=== PATIENT | male | born 1935 | race Caucasian/White ===

== ENCOUNTER 2018-10-06 11:35 | Inpatient (IN) | payer OTHER ==
[2018-10-06] MEDS ORDERED: traZODone 50 MG TAB PO PRN (15:03)
[2018-10-06] MEDS ORDERED: ACETAMINOPHEN 650 MG SUPP PR PRN (15:03)
[2018-10-06] MEDS ORDERED: TERBINAFINE 30 GM CRTUBE TP PRN (15:03)
--- NOTE | 2018-10-06 17:23 | GHP ---
DATE OF ADMISSION: 10/06/2018 TIME OF EVALUATION: 1505. REFERRING FACILITY: [facility]. IMPAIRMENT GROUP: 1.2. DATE OF ONSET: 10/01/2018. REFERRING PHYSICIAN: Dr. Fontana. CONSULTING PHYSICIANS: Neurosurgery, Dr. Byrne, and Neurology, Drs. Doyle and Kg. 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 ETIOLOGIC DIAGNOSIS: Right body involvement (left brain). HISTORY OF PRESENT ILLNESS: This patient was admitted to [facility] with right-sided weakness and dysarthria. A head CT showed an intraparenchymal hemorrhage of the left lentiform nucleus. Head and neck CT angiogram showed no significant stenosis or large vessel occlusion. He had a transthoracic echo with bubble study that showed no intracardiac shunt. His left ventricular ejection fraction was 64%. He had mild to moderate concentric LVH and he had mildly reduced right ventricular systolic function. Carotid ultrasound showed a very small amount of plaque. CT angiogram of the head showed mild to moderate intracranial and extracranial atherosclerosis. An MRI on 10/02/2018 showed 3.2 x 1.6 x 2.8 intraparenchymal hemorrhage in the left lentiform nucleus. He had mild to moderate surrounding vasogenic edema, moderate chronic small vessel ischemic changes and age-appropriate senescent changes. He initially needed a nicardipine IV drip to maintain blood pressure less than 140 systolic. The Neurosurgery data migration consultant determined that he required no surgical intervention. His nicardipine drip was discontinued and he was resumed on his home blood pressure medications of lisinopril and hydrochlorothiazide. He was noted then to have increased blood pressure overnight. Amlodipine was begun and his blood pressure was close to goal. Subsequently, he was participating in therapies and medically stable and appropriate for inpatient rehabilitation. OTHER STUDIES AND LABS: CBC showed mild hemoconcentration with a hemoglobin of 18.4. Hematocrit was normal at 51.2. CBC was normal on on 10/01/2017. Basic metabolic profile on 10/01/2017 showed a slightly low sodium at 135, with the normal range being 136-145. His BUN was slightly elevated at 19, creatinine was high normal at 1.26. Estimated GFR was 53. Troponin was negative. Coagulation studies were normal. A lipid panel was well controlled with a total cholesterol of 126 and an LDL of 69. Repeat creatinine presumably after hydration was 1.1 with a normal GFR of 63. There was a hemoglobin A1c done, which was 5.8. PRECAUTIONS: He is a fall risk. ACTIVE COMORBIDITIES: He has the tier 2 comorbidity of dysphagia which is mild. He has a tier 3 comorbidity of right upper extremity hemiparesis. PAST MEDICAL HISTORY: 1. Hypertension. 2. Dyslipidemia. 3. Gastroesophageal reflux disorder. 4. Chronic kidney disease with a baseline creatinine of 1.2-1.3. 5. Chronic hypoxemic respiratory failure requiring 2 L of oxygen at night. 6. Restless legs syndrome for which he was taking no medications. 7. Anxiety/insomnia for which he was taking trazodone. 8. Polycythemia. PAST SURGICAL HISTORY: He has had an appendectomy. PRE-HOSPITAL MEDICATIONS: 1. Atorvastatin 20 mg p.o. daily. 2. Fluticasone 50 mcg 2 sprays each nostril daily. 3. Lisinopril/hydrochlorothiazide 20/12.5 two tablets p.o. daily. 4. Largo-3 capsule. 5. Ranitidine 300 mg p.o. daily. 6. Saw palmetto extract. 7. Terbinafine to 2 rash on foot. 8. Trazodone 50 mg p.o. daily. ADMISSION MEDICATIONS: 1. Acetaminophen 650 mg p.o. q.6 hours p.r.n. 2. Amlodipine 5 mg p.o. daily. 3. Atorvastatin 40 mg p.o. at bedtime. 4. Calcium carbonate 1000 mg before meals and at bedtime. 5. Famotidine 20 mg p.o. daily. 6. Fluticasone 2 sprays each naris daily. 7. Saw palmetto extract. 8. Hydrochlorothiazide 25 mg p.o. daily. 9. Lisinopril 40 mg p.o. daily. 10. Mirtazapine 15 mg p.o. at bedtime. 11. Largo-3 fatty acids 1000 mg p.o. daily. 12. Terbinafine 1 application daily p.r.n. to rash on right foot. 13. Trazodone 50 mg p.o. at bedtime p.r.n. ALLERGIES: Listed to minocycline, which caused a rash, and penicillins. PSYCHOSOCIAL HISTORY: He is and lives with his . She has dementia and he is a caregiver for her. 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 He is a nonsmoker. He has several drinks a week. He has a local son who is involved in his care. FAMILY HISTORY: Noncontributory. REVIEW OF SYSTEMS: He is aware of inability to move his right wrist and hand and says it feels . He reports normal sensation in the hand. He is not aware of difficulty swallowing. He is not in pain. He has no cough or dyspnea. He has no fevers or chills. He has not had weight loss. There is no chest pain or palpitations. He has a good appetite. He has no constipation, diarrhea, nausea or vomiting. He has no dysuria or urinary frequency, but he reports that he has hesitancy. Other than his rash on his right foot, he denies skin rash or skin breakdown. He denies joint pain or joint swelling. He has had anxiety especially at night for which the mirtazapine was prescribed. Otherwise, a 10-point review of systems is negative. PHYSICAL EXAMINATION: VITAL SIGNS: Not yet available in the chart. GENERAL: This is a well-nourished, well-developed, overweight appearing man, sitting in a chair, cooperative, dressed in street clothes, and in no acute distress. HEENT: Extraocular movements are intact. Pupils are equal, round, reactive to light. Mucous membranes are moist. Dentition is in good condition. He has an uncrowded airway, Mallampati class 2. NECK: Supple. HEART: There is a regular rate and rhythm with no murmurs, rubs, or gallops. There is no JVD. LUNGS: Clear to auscultation bilaterally. ABDOMEN: Soft, nontender, nondistended with normoactive bowel sounds and no hepatosplenomegaly. EXTREMITIES: There is no cyanosis, clubbing, or edema. Radial and dorsalis pedis pulses are 2+ bilaterally. NEUROLOGIC: He is alert and oriented x3. Cranial nerves 2-12 are grossly intact. He has flaccid paralysis of the right wrist, hand, and fingers. He is able to raise his arm against gravity from the shoulder. He has muscle activation of the biceps and triceps, but he clearly has antigravity strength with the right biceps. The right triceps is 3-4/5. Otherwise, his motor strength is 5/5 overall. Deep tendon reflexes are 2+ bilaterally at the biceps, patellar, and Achilles tendons. Sensation is intact to light touch including on the right hand and there is no extinction to double simultaneous stimulation. SKIN: He has a confluent erythematous quantified rash over the medial left ankle and foot. CURRENT LEVEL OF FUNCTION PER THE PREADMISSION SCREEN: He was on a dysphagia 3 diet and required minimal assist for feeding. Grooming, he required minimal assist with verbal and tactile cues, standing at the sink and he was able to stand for 8 minutes. Bathing required minimal assist. Upper body dressing was done with modified independence and lower body dressing with modified independence for pants but maximal assist for socks. Toileting required minimal assist. Bed mobility required minimal assist. Transfers were done with minimal assist and verbal and tactile cues using a front-wheeled walker. Balance required minimal assist with dynamic upright tasks. Endurance was fair. He was able to ambulate 90 feet with minimal assist and a front-wheeled walker. His gait pattern lacked heel strike and toe off. He had a narrow base of support and leaned to the right. He required maximal assist to maintain right hand web merchandiser on the front wheeled walker. Regarding communication, he was noted to have mild aphasia. On today's exam, there are no significant changes from the preadmission screen. IMPRESSION: This is an 83-year-old man who suffered a hemorrhagic stroke to the left lentiform nucleus, giving him right hand and wrist weakness. There is flaccid paralysis and right arm weakness, impaired gait, mild aphasia and mild dysphagia. He had a full evaluation in the hospital including no cardioembolic source and no significant vascular stenoses in the cerebral vasculature or the carotids. He had a very high blood pressure and required a nicardipine drip initially. Subsequently he was resumed on his home medications, but noted to have elevated blood pressures overnight and amlodipine was begun and added q. day. He had anxiety and associated insomnia. Mirtazapine was added to his prior prescription of trazodone and on one recent night the trazodone was given at about 1:30 in the morning and he was quite groggy when he arose in the morning. He was otherwise medically stabilized and appropriate for inpatient rehabilitation. His goal is to complete a rehabilitation stay and then return home with home health care. For a safe discharge he will need to achieve modified independence for eating, grooming, bed mobility, and transfers. He may require supervision for dressing and bathing. He will ambulate with the least restrictive device on level and unlevel surfaces for household distances. He may need a wheelchair for community outings. He will need to tolerate a regular diet and thin liquids. He will likely require assistance for household management, shopping, and meals and he and his family will need education regarding his impairments in compensatory strategies. He will have therapy with physical therapy, occupational therapy, and speech and language pathology for 60 minutes per day for each discipline on 5-7 days of the week. His expected duration of stay is 10-14 days. It is anticipated that he will continue to benefit from home health services after his discharge, including nursing, speech and language pathology, a nurse' s aide, social work, occupational therapy, and physical therapy. Additionally, he will likely benefit from a stroke support group. PLAN: 1. Hemorrhagic cerebrovascular accident with flaccid paralysis of the right wrist and hand and weakness of the right upper extremity as well as gait impairment. PT and OT to optimize mobility and activities of daily living. 2. Aphasia and dysphagia. Assessment and treatment per Speech and Language Pathology. 3. Hypertension. Continue amlodipine 5 mg daily, lisinopril 40 mg daily, and hydrochlorothiazide 25 mg daily. His blood pressure will be monitored. If he continues to have elevated blood pressures at night or first thing in the morning, we will consider changing the amlodipine to h.s. dosing. 4. Dyslipidemia. Atorvastatin has been increased from 20 mg to 40 mg and this will be continued. 5. Anxiety and insomnia. He may well sleep better now that he is out of the hospital and on the rehabilitation unit. Will evaluate his sleep and his alertness during the day and consider elimination or titration of either mirtazapine or trazodone. 6. Rash on the right foot of unclear etiology. Continue the terbinafine at present. He reports that the itch on the rash has remitted with the terbinafine treatment which was prescribed by his outpatient physician. 7. Gastroesophageal reflux disorder. Continue H2 navneet and continue calcium carbonate. 8. Chronic kidney disease, stage 3. He appears to be stable on his antihypertensives through his hospital stay and will not order repeat labs at present. 9. Chronic hypoxemic respiratory failure of unclear etiology. He did not appear to have diastolic or systolic dysfunction other than the right ventricle with a slightly reduced ejection fraction on echocardiogram during his hospitalization. 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 He will be monitored and will receive oxygen as needed. 10. Prediabetes with a hemoglobin A1c of 5.8. There will be a consult with the dietitian. 11. Prophylaxis. He does not have a paralyzed lower extremity and he is ambulatory. He has a recent brain hemorrhage, so on balance, the risk of bleed probably exceeds the risk of DVT. He will be mobilized as much as possible. Aspirin has been discontinued which he was taking prior to his bleed. He will have SCDs at night. 12. Followup. There are no specific specialists followups mentioned in the discharge summary. He will follow up with his primary care provider. /[id number]/MODL HIPOLITO
[2018-10-06] MEDS: ATORVASTATIN CALCIUM 40 MG TAB PO SCH (20:09)
[2018-10-06] MEDS: MIRTAZAPINE 15 MG TAB PO SCH (20:09)
[2018-10-06] MEDS: CALCIUM CARBONATE 500 MG CHEWABLE TAB PO PRN (22:45)
[2018-10-07] MEDS: OMEGA-3 FATTY ACIDS 1,000 MG CAP PO SCH (08:52)
[2018-10-07] MEDS: FAMOTIDINE 20 MG TAB PO SCH (08:54)
[2018-10-07] MEDS: amLODIPine BESYLATE 5 MG TAB PO SCH (08:54)
[2018-10-07] MEDS: HYDROCHLOROTHIAZIDE 25 MG TAB PO SCH (08:54)
[2018-10-07] MEDS: LISINOPRIL 40 MG TAB PO SCH (08:55)
[2018-10-07] MEDS ORDERED: Herbals/Supplements -Info Only PO SCH (09:00)
[2018-10-07] MEDS: FLUTICASONE NASAL 120 SPRAYS/16 GM MDI EACHNARE SCH (09:04)
--- NOTE | 2018-10-07 13:32 | SOAPPROG ---
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 * PT and OT to optimize mobility and activities of daily living. Aphasia and dysphagia. Assessment and treatment per Speech and Language Pathology. Hypertension. Continue amlodipine 5 mg daily, lisinopril 40 mg daily, and hydrochlorothiazide 25 mg daily. His blood pressure will be monitored. If he continues to have elevated blood pressures at night or first thing in the morning, consider changing the amlodipine to h.s. dosing. Dyslipidemia. Atorvastatin has been increased from 20 mg to 40 mg and this will be continued. Anxiety and insomnia. He may well sleep better now that he is out of the hospital and on the rehabilitation unit. Will evaluate his sleep and his alertness during the day and consider elimination or titration of either mirtazapine or trazodone. * Will discuss whether he needs alarms with nursing. * Trial of ropinirole 0.25 mg at HS regarding restless leg syndrome, beginning . Rash on the right foot of unclear etiology. Continue the terbinafine at present. He reports that the itch on the rash has remitted with the terbinafine treatment which was prescribed by his outpatient physician. Gastroesophageal reflux disorder. Continue H2 navneet and continue calcium carbonate. Chronic kidney disease, stage 3. He appears to be stable on his antihypertensives through his hospital stay and will not order repeat labs at present. Chronic hypoxemic respiratory failure of unclear etiology. He did not appear to have diastolic or systolic dysfunction other than the right ventricle with a slightly reduced ejection fraction on echocardiogram during his hospitalization. 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 He will be monitored and will receive oxygen as needed. Prediabetes with a hemoglobin A1c of 5.8. There will be a consult with the dietitian. Prophylaxis. He does not have a paralyzed lower extremity and he is ambulatory. He has a recent brain hemorrhage, so on balance, the risk of bleed probably exceeds the risk of DVT. He will be mobilized as much as possible. Aspirin has been discontinued which he was taking prior to his bleed. He will have SCDs at night. Followup. There are no specific specialists followups mentioned in the discharge summary. He will follow up with his primary care provider. 10/07/18 13:35 Subjective: Reports poor sleep overnight. He said that he moves around a lot at night and sometimes sits up on the edge of the bed and he kept setting off the alarm. He also thinks that his restless leg syndrome may be causing some sleep disturbance. Otherwise without complaints. Objective: Vital Signs Temp Pulse Resp BP Pulse Ox 36.6 C 83 18 122/68 H 91 L 10/06/18 20:16 10/07/18 08:00 10/06/18 20:16 10/07/18 08:00 10/07/18 08:00 10/06/18 10/07/18 10/08/18 05:59 05:59 05:59 Intake Total 360 425 Output Total 950 250 Balance -590 175 Physical Exam - Physical Exam General Appearance: WD/WN, alert, no apparent distress Respiratory: normal breath sounds, No crackles, No rhonchi, No wheezing Cardiac/Chest: regular rate, rhythm, No edema, No diastolic murmur, No systolic murmur Skin: normal color, warm/dry Neuro/Psych: alert, normal mood/affect, oriented x 3, abnormal gait (Ataxic gait on right lower extremity. Ambulating with contact guard assist per PT using trekking pole in the left hand. Has loss of balance x1.), motor weakness (Right upper extremity) ICD10 Worksheet Patient Problems: Problems Problem Status Onset CVA (cerebrovascular accident due to intracerebral hemorrhage) Acute
--- NOTE | 2018-10-07 13:33 | PDOREHIP ---
Admission [facility] - Admission - 3 Day Assessment Period Admission Date/Day 1: 10/06/18 Day 2: 10/07/18 Day 3: 10/08/18 - Active Diagnoses Comorbidities and Co-existing Conditions at Admission: 89760. None of the Above - Skin Conditions Unhealed Pressure Ulcer (1 or more/Stage 1 or >)-Admission: 0. No # Stage 1 Pressure Ulcers-Admission: 0 # Stage 2 Pressure Ulcers-Admission: 0 # Stage 3 Pressure Ulcers-Admission: 0 # Stage 4 Pressure Ulcers-Admission: 0 # Unstageable Pressure Ulcers (Non-remove Dress)-Admission: 0 # Unstageable Pressure Ulcers (Slough/Eschar)-Admission: 0 # Unstageable Pressure Ulcers (Deep Tissue Injury)-Admission: 0
[2018-10-07] MEDS: ATORVASTATIN CALCIUM 40 MG TAB PO SCH (20:58)
[2018-10-07] MEDS: MIRTAZAPINE 15 MG TAB PO SCH (20:58)
[2018-10-08] MEDS: LISINOPRIL 40 MG TAB PO SCH (08:16)
[2018-10-08] MEDS: OMEGA-3 FATTY ACIDS 1,000 MG CAP PO SCH (08:16)
[2018-10-08] MEDS: amLODIPine BESYLATE 5 MG TAB PO SCH (08:16)
[2018-10-08] MEDS: FLUTICASONE NASAL 120 SPRAYS/16 GM MDI EACHNARE SCH (08:16)
[2018-10-08] MEDS: HYDROCHLOROTHIAZIDE 25 MG TAB PO SCH (08:16)
[2018-10-08] MEDS: FAMOTIDINE 20 MG TAB PO SCH (08:16)
--- NOTE | 2018-10-08 11:22 | SOAPPROG ---
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 * PT and OT to optimize mobility and activities of daily living. Aphasia and dysphagia. Assessment and treatment per Speech and Language Pathology. Hypertension. Continue amlodipine 5 mg daily, lisinopril 40 mg daily, and hydrochlorothiazide 25 mg daily. His blood pressure will be monitored. If he continues to have elevated blood pressures at night or first thing in the morning, consider changing the amlodipine to h.s. dosing. * He reports he was on potassium 10 mEq 4 times a day previously and wonders if he needs it now. Will check BMP and magnesium in the morning. Dyslipidemia. Atorvastatin has been increased from 20 mg to 40 mg and this will be continued. Anxiety and insomnia. He may well sleep better now that he is out of the hospital and on the rehabilitation unit. Will evaluate his sleep and his alertness during the day and consider elimination or titration of either mirtazapine or trazodone. * Will discuss whether he needs alarms with nursing. * Trial of ropinirole 0.25 mg at regarding restless leg syndrome, beginning . He may have had some improvement. Consider increasing the dose on . Encouraged to use call light at night if he wants to get up, and assured him that he will not be bothering anyone by doing it. Rash on the right foot of unclear etiology. Continue the terbinafine at present. He reports that the itch on the rash has remitted with the terbinafine treatment which was prescribed by his outpatient physician. Gastroesophageal reflux disorder. Continue H2 navneet and continue calcium carbonate. Chronic kidney disease, stage 3. He appears to be stable on his antihypertensives through his hospital stay and will not order repeat labs at present. Chronic hypoxemic respiratory failure of unclear etiology. He did not appear to have diastolic or systolic dysfunction other than the right ventricle with a slightly reduced ejection fraction on echocardiogram during his hospitalization. 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 He will be monitored and will receive oxygen as needed. Prediabetes with a hemoglobin A1c of 5.8. There will be a consult with the dietitian. Prophylaxis. He does not have a paralyzed lower extremity and he is ambulatory. He has a recent brain hemorrhage, so on balance, the risk of bleed probably exceeds the risk of DVT. He will be mobilized as much as possible. Aspirin has been discontinued which he was taking prior to his bleed. He will have SCDs at night. Followup. There are no specific specialists followups mentioned in the discharge summary. He will follow up with his primary care provider. 10/08/18 11:21 Subjective: Slept better last night but still concerned that if he wants to get up at night he will set off alarm. No pain. No cough or dyspnea. Notes improved use of right hand. Objective: Vital Signs Temp Pulse Resp BP Pulse Ox 36.4 C 78 16 138/87 H 93 10/08/18 06:08 10/08/18 08:17 10/08/18 06:08 10/08/18 08:17 10/08/18 06:08 10/07/18 10/08/18 10/09/18 05:59 05:59 05:59 Intake Total 360 1085 Output Total 950 250 Balance -590 835 Physical Exam - Physical Exam General Appearance: WD/WN, alert, no apparent distress Respiratory: normal breath sounds, No crackles, No rhonchi, No wheezing Cardiac/Chest: regular rate, rhythm, No edema, No JVD, No diastolic murmur, No systolic murmur Skin: normal color, warm/dry Neuro/Psych: alert, normal mood/affect, oriented x 3, motor weakness (Has return of movement to right wrist and fingers.) ICD10 Worksheet Patient Problems: Problems Problem Status Onset CVA (cerebrovascular accident due to intracerebral hemorrhage) Acute
[2018-10-08] MEDS: ATORVASTATIN CALCIUM 40 MG TAB PO SCH (20:31)
[2018-10-08] MEDS: MIRTAZAPINE 15 MG TAB PO SCH (20:31)
[2018-10-09] MEDS: LISINOPRIL 40 MG TAB PO SCH (08:54)
[2018-10-09] MEDS: amLODIPine BESYLATE 5 MG TAB PO SCH (08:55)
[2018-10-09] MEDS: HYDROCHLOROTHIAZIDE 25 MG TAB PO SCH (08:55)
[2018-10-09] MEDS: FLUTICASONE NASAL 120 SPRAYS/16 GM MDI EACHNARE SCH (08:55)
[2018-10-09] MEDS: OMEGA-3 FATTY ACIDS 1,000 MG CAP PO SCH (08:55)
[2018-10-09] MEDS: FAMOTIDINE 20 MG TAB PO SCH (08:55)
[2018-10-09] MEDS: POTASSIUM CL 10 MEQ TAB PO SCH (12:11)
--- NOTE | 2018-10-09 13:12 | SOAPPROG ---
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 * Initial functional independence measure is 87 on 10/09/2017. He is independent with bed mobility. He ambulated greater than 300 ft with standby assist and a trach pole. Upper body dressing required supervision and lower body required minimal assist. Grooming hygiene were done standing with standby assist. Toileting and toilet transfer required standby assist. * Continue PT and OT to optimize mobility and activities of daily living. Cognitive impairment. Scored 18/30 on the [facility] cognitive Assessment Test. Has decreased word retrieval, naming, new learning and memory, executive function. 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 Hope for improvement if his sleep improves. Hypertension. Continue amlodipine 5 mg daily, lisinopril 40 mg daily, and hydrochlorothiazide 25 mg daily. His blood pressure will be monitored. If he continues to have elevated blood pressures at night or first thing in the morning, consider changing the amlodipine to h.s. dosing. * He reports he was on potassium 10 mEq 4 times a day previously and wonders if he needs it now. BMP 10/09/2018 with dehydration and a low-normal potassium. Will initiate potassium 10 mEq p. O. Q.day. Encouraged hydration. Dyslipidemia. Atorvastatin has been increased from 20 mg to 40 mg and this will be continued. Anxiety and insomnia. He may well sleep better now that he is out of the hospital and on the rehabilitation unit. Will evaluate his sleep and his alertness during the day and consider elimination or titration of either mirtazapine or trazodone. * Will discuss whether he needs alarms with nursing. * Trial of ropinirole 0.25 mg at regarding restless leg syndrome, beginning . He may have had some improvement. Increase dose on 10/09/2018 to 0.5 mg. Encouraged to use call light at night if he wants to get up, and assured him that he will not be bothering anyone by doing it. * Not using trazodone so will discontinue 10/09/2018. Rash on the right foot of unclear etiology. Continue the terbinafine at present. He reports that the itch on the rash has remitted with the terbinafine treatment which was prescribed by his outpatient physician. Gastroesophageal reflux disorder. Continue H2 navneet and continue calcium carbonate. Chronic kidney disease, stage 3. Stable on BMP 10/09/2018. Chronic hypoxemic respiratory failure of unclear etiology. He did not appear to have diastolic or systolic dysfunction other than the right ventricle with a slightly reduced ejection fraction on echocardiogram during his hospitalization. 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 He will be monitored and will receive oxygen as needed. Prediabetes with a hemoglobin A1c of 5.8. There will be a consult with the dietitian. Dysphagia. Advanced to regular texture diet and thin liquids. Prophylaxis. He does not have a paralyzed lower extremity and he is ambulatory. He has a recent brain hemorrhage, so on balance, the risk of bleed probably exceeds the risk of DVT. He will be mobilized as much as possible. Aspirin has been discontinued which he was taking prior to his bleed. He will have SCDs at night. DISPOSITION: Attended staffing, 15 min. Discussed with case management, dietitian, nursing, PT, OT, SUPERVISOR UNLOADING. Lives with his who has mild dementia though she is able to complete her physical cares. He reports he assists her with medication management. There are 2 steps to enter. Given his newly diagnosed cognitive impairment, they might be best served by moving to an assisted living facility. Case Management will discuss further. Discharge date set for 10/15/2018. Followup. There are no specific specialists followups mentioned in the discharge summary. He will follow up with his primary care provider. 10/09/18 13:06 Subjective: Does not think he slept well last night but reports that he is typically up frequently at night and at home often he will get on his computer and plate computer games for while until he falls asleep again. He is not in pain. No cough or dyspnea. He thinks the restless legs symptoms are about the same and may have interfered with sleep last night. Objective: Vital Signs Temp Pulse Resp BP Pulse Ox 36.4 C 87 14 117/63 93 10/09/18 08:00 10/09/18 08:00 10/09/18 08:00 10/09/18 08:55 10/09/18 08:00 Laboratory Results 10/09/18 06:45 10/08/18 10/09/18 10/10/18 05:59 05:59 05:59 Intake Total 1085 300 375 Output Total 250 Balance 835 300 375 Physical Exam - Physical Exam General Appearance: WD/WN, alert, no apparent distress Respiratory: No respiratory distress, No accessory muscle use Skin: normal color, warm/dry Neuro/Psych: alert, normal mood/affect, oriented x 3, motor weakness (Right upper extremity), other (Repetitive involuntary movements of legs.) ICD10 Worksheet Patient Problems: Problems Problem Status Onset CVA (cerebrovascular accident due to intracerebral hemorrhage) Acute
[2018-10-09] MEDS: MIRTAZAPINE 15 MG TAB PO SCH (20:59)
[2018-10-09] MEDS: ATORVASTATIN CALCIUM 40 MG TAB PO SCH (20:59)
[2018-10-09] MEDS: CALCIUM CARBONATE 500 MG CHEWABLE TAB PO PRN (22:06)
[2018-10-10] MEDS: OMEGA-3 FATTY ACIDS 1,000 MG CAP PO SCH (08:14)
[2018-10-10] MEDS: amLODIPine BESYLATE 5 MG TAB PO SCH (08:14)
[2018-10-10] MEDS: FAMOTIDINE 20 MG TAB PO SCH (08:14)
[2018-10-10] MEDS: HYDROCHLOROTHIAZIDE 25 MG TAB PO SCH (08:14)
[2018-10-10] MEDS: POTASSIUM CL 10 MEQ TAB PO SCH (08:14)
[2018-10-10] MEDS: LISINOPRIL 40 MG TAB PO SCH (08:14)
[2018-10-10] MEDS: FLUTICASONE NASAL 120 SPRAYS/16 GM MDI EACHNARE SCH (09:03)
[2018-10-10] MEDS ORDERED: amLODIPine BESYLATE 5 MG TAB PO SCH (11:39)
--- NOTE | 2018-10-10 11:39 | SOAPPROG ---
SOAP Progress Note Assessment/Plan: Assessment: Hemorrhagic cerebrovascular accident with INITIAL flaccid paralysis of the right wrist and hand and weakness of the right upper extremity as well as gait impairment. HE IS MAKING IMPROVEMENTS IN BOTH RIGHT UPPER AND RIGHT LOWER EXTREMITY MOTOR RETURN. AND CURRENTLY RIGHT UPPER EXTREMITY WEAKNESS IS MORE PRONOUNCED THAN RIGHT LOWER EXTREMITY, PARTICULARLY INVOLVING WRIST AND FINGER EXTENSORS. * Initial functional independence measure is 87 on 10/09/2017. He is independent with bed mobility. He ambulated greater than 300 ft with standby assist and a trach pole. Upper body dressing required supervision and lower body required minimal assist. Grooming hygiene were done standing with standby assist. Toileting and toilet transfer required standby assist. * Continue PT and OT to optimize mobility and activities of daily living. Cognitive impairment. Scored 18/30 on the [place] cognitive Assessment Test. Has decreased word retrieval, naming, new learning and memory, executive function. 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 Hope for improvement if his sleep improves. Hypertension. Continue amlodipine 5 mg daily, lisinopril 40 mg daily, and hydrochlorothiazide 25 mg daily. His blood pressure will be monitored. If he continues to have elevated blood pressures at night or first thing in the morning, consider changing the amlodipine to h.s. dosing. BLOOD PRESSURE FROM MORNING WAS 134/91. THEREFORE WILL CHANGE AMLODIPINE TO HS DOSING. POTASSIUM LEVEL FROM 10/09 WAS 3.6. * He reports he was on potassium 10 mEq 4 times a day previously and wonders if he needs it now. BMP 10/09/2018 with dehydration and a low-normal potassium. Will initiate potassium 10 mEq p. O. Q.day. Encouraged hydration. Dyslipidemia. Atorvastatin has been increased from 20 mg to 40 mg and this will be continued. Anxiety and insomnia. He may well sleep better now that he is out of the hospital and on the rehabilitation unit. Will evaluate his sleep and his alertness during the day and consider elimination or titration of either mirtazapine or trazodone. * Will discuss whether he needs alarms with nursing. HE REPORTS THAT HE IS NOT SLEEPING WELL DUE TO THE NIGHTTIME ALARMS. IF HAS TEAM MEETING ON FRIDAY THEN WILL DISCUSS WITH STAFF ABOUT DISCONTINUING BED ALARMS * Trial of ropinirole 0.25 mg at HS regarding restless leg syndrome, beginning . He may have had some improvement. Increase dose on 10/09/2018 to 0.5 mg. HE DOES NOT COMPLAIN OF LEG PAIN OR RESTLESS LEG TYPE SYMPTOMS ON TODAY'S ROUNDS. Encouraged to use call light at night if he wants to get up, and assured him that he will not be bothering anyone by doing it. * Not using trazodone so will discontinue 10/09/2018. Rash on the right foot of unclear etiology. Continue the terbinafine at present. He reports that the itch on the rash has remitted with the terbinafine treatment which was prescribed by his outpatient physician. Gastroesophageal reflux disorder. Continue H2 navneet and continue calcium carbonate. Chronic kidney disease, stage 3. Stable on BMP 10/09/2018. Chronic hypoxemic respiratory failure of unclear etiology. He did not appear to have diastolic or systolic dysfunction other than the right ventricle with a slightly reduced ejection fraction on echocardiogram during his hospitalization. 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 He will be monitored and will receive oxygen as needed. Prediabetes with a hemoglobin A1c of 5.8. There will be a consult with the dietitian. Dysphagia. Advanced to regular texture diet and thin liquids. Prophylaxis. He does not have a paralyzed lower extremity and he is ambulatory. He has a recent brain hemorrhage, so on balance, the risk of bleed probably exceeds the risk of DVT. He will be mobilized as much as possible. Aspirin has been discontinued which he was taking prior to his bleed. He will have SCDs at night. DISPOSITION: Attended staffing, 15 min. Discussed with case management, dietitian, nursing, PT, OT, SKATING RINK ICE MAKER. Lives with his who has mild dementia though she is able to complete her physical cares. He reports he assists her with medication management. There are 2 steps to enter. Given his newly diagnosed cognitive impairment, they might be best served by moving to an assisted living facility. Case Management will discuss further. Discharge date set for 10/15/2018. Followup. There are no specific specialists followups mentioned in the discharge summary. He will follow up with his primary care provider. Plan: 10/10/18 11:33 Subjective: NO COMPLAINTS THIS MORNING. NO PROBLEMS REPORTED BY NURSING STAFF. DENIES NUMBNESS TINGLING OR PARESTHESIAS IN RIGHT UPPER EXTREMITY. REPORTS CONTINUED RETURN OF MOTOR FUNCTION IN RIGHT UPPER AND RIGHT LOWER EXTREMITY ALTHOUGH HE REPORTS HIS RIGHT ARM IS WEAKER THAN HIS LEG. Objective: Vital Signs Temp Pulse Resp BP Pulse Ox 36.3 C 85 18 134/91 H 94 10/10/18 09:03 10/10/18 08:10 10/10/18 08:10 10/10/18 08:14 10/10/18 08:10 Laboratory Results 10/09/18 06:45 10/09/18 10/10/18 10/11/18 05:59 05:59 05:59 Intake Total 300 1065 Balance 300 1065 Physical Exam - Physical Exam General Appearance: WD/WN, alert, no apparent distress Respiratory: lungs clear, normal breath sounds Cardiac/Chest: No edema Abdomen: normal bowel sounds, non-tender, soft Extremities: No swelling, No Wendy's sign Neuro/Psych: motor weakness (MILD RIGHT HEMIPARESIS WITH RIGHT UPPER EXTREMITY WEAKNESS MORE PRONOUNCED THAN RIGHT LOWER EXTREMITY, PARTICULARLY THE WRIST AND FINGER EXTENSORS.) ICD10 Worksheet Patient Problems: Problems Problem Status Onset CVA (cerebrovascular accident due to intracerebral hemorrhage) Acute
[2018-10-10] MEDS: MIRTAZAPINE 15 MG TAB PO SCH (20:16)
[2018-10-10] MEDS: ATORVASTATIN CALCIUM 40 MG TAB PO SCH (20:16)
[2018-10-10] MEDS: CALCIUM CARBONATE 500 MG CHEWABLE TAB PO PRN (21:12)
[2018-10-11] MEDS: LISINOPRIL 40 MG TAB PO SCH (08:28)
[2018-10-11] MEDS: FAMOTIDINE 20 MG TAB PO SCH (08:28)
[2018-10-11] MEDS: HYDROCHLOROTHIAZIDE 25 MG TAB PO SCH (08:28)
[2018-10-11] MEDS: POTASSIUM CL 10 MEQ TAB PO SCH (08:29)
[2018-10-11] MEDS: OMEGA-3 FATTY ACIDS 1,000 MG CAP PO SCH (08:29)
--- NOTE | 2018-10-11 09:54 | SOAPPROG ---
SOAP Progress Note Assessment/Plan: Assessment: Hemorrhagic cerebrovascular accident with INITIAL flaccid paralysis of the right wrist and hand and weakness of the right upper extremity as well as gait impairment. HE IS MAKING IMPROVEMENTS IN BOTH RIGHT UPPER AND RIGHT LOWER EXTREMITY MOTOR RETURN. AND CURRENTLY RIGHT UPPER EXTREMITY WEAKNESS IS MORE PRONOUNCED THAN RIGHT LOWER EXTREMITY, PARTICULARLY INVOLVING WRIST AND FINGER EXTENSORS. THIS DIRECTED PATIENT TO PERFORM REPETITIVE WRIST AND FINGER EXTENSION WHILE SUPPORTING FOREARM ON TABLE OR LAP TRAY. * Initial functional independence measure is 87 on 10/09/2017. He is independent with bed mobility. He ambulated greater than 300 ft with standby assist and a trach pole. Upper body dressing required supervision and lower body required minimal assist. Grooming hygiene were done standing with standby assist. Toileting and toilet transfer required standby assist. * Continue PT and OT to optimize mobility and activities of daily living. Cognitive impairment. Scored 18/30 on the [place] cognitive Assessment Test. Has decreased word retrieval, naming, new learning and memory, executive function. * Continue PLEAT TAPER. Hope for improvement if his sleep improves. Hypertension. Continue amlodipine 5 mg daily, lisinopril 40 mg daily, and hydrochlorothiazide 25 mg daily. His blood pressure will be monitored. If he continues to have elevated blood pressures at night or first thing in the morning, consider changing the amlodipine to h.s. dosing. BLOOD PRESSURE 10/11 125/62. PATIENT SEEMS TO HAVE RESPONDED TO CHANGING THE AMLODIPINE TO HS DOSING. * He reports he was on potassium 10 mEq 4 times a day previously and wonders if he needs it now. BMP 10/09/2018 with dehydration and a low-normal potassium. Will initiate potassium 10 mEq p. O. Q.day. Encouraged hydration. Dyslipidemia. Atorvastatin has been increased from 20 mg to 40 mg and this will be continued. Anxiety and insomnia. He may well sleep better now that he is out of the hospital and on the rehabilitation unit. Will evaluate his sleep and his alertness during the day and consider elimination or titration of either mirtazapine or trazodone. * Will discuss whether he needs alarms with nursing. HE REPORTS THAT HE IS NOT SLEEPING WELL DUE TO THE NIGHTTIME ALARMS. IF HAS TEAM MEETING ON FRIDAY THEN WILL DISCUSS WITH STAFF ABOUT DISCONTINUING BED ALARMS * Trial of ropinirole 0.25 mg at HS regarding restless leg syndrome, beginning . He may have had some improvement. Increase dose on 10/09/2018 to 0.5 mg. HE DOES NOT COMPLAIN OF LEG PAIN OR RESTLESS LEG TYPE SYMPTOMS ON TODAY'S ROUNDS. HE REPORTS THAT HIS LEGS HAVE BEEN JITTERY FAR BACK HE CAN REMEMBER. Encouraged to use call light at night if he wants to get up, and assured him that he will not be bothering anyone by doing it. * BEGIN MELATONIN 3 MG AT NIGHT. DISCUSSED WITH PHARMACY TO ASCERTAIN THAT THERE ARE NO ADVERSE REACTIONS WITH HIS OTHER MEDICATIONS. Not using trazodone so will discontinue 10/09/2018. Rash on the right foot of unclear etiology. Continue the terbinafine at present. He reports that the itch on the rash has remitted with the terbinafine treatment which was prescribed by his outpatient physician. Gastroesophageal reflux disorder. Continue H2 navneet and continue calcium carbonate. Chronic kidney disease, stage 3. Stable on BMP 10/09/2018. Chronic hypoxemic respiratory failure of unclear etiology. He did not appear to have diastolic or systolic dysfunction other than the right ventricle with a slightly reduced ejection fraction on echocardiogram during his hospitalization. 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 He will be monitored and will receive oxygen as needed. Prediabetes with a hemoglobin A1c of 5.8. There will be a consult with the dietitian. Dysphagia. Advanced to regular texture diet and thin liquids. Prophylaxis. He does not have a paralyzed lower extremity and he is ambulatory. He has a recent brain hemorrhage, so on balance, the risk of bleed probably exceeds the risk of DVT. He will be mobilized as much as possible. Aspirin has been discontinued which he was taking prior to his bleed. He will have SCDs at night. DISPOSITION: Given his newly diagnosed cognitive impairment, they might be best served by moving to an assisted living facility. Case Management will discuss further. Discharge date set for 10/15/2018. Followup. There are no specific specialists followups mentioned in the discharge summary. He will follow up with his primary care provider. Plan: 10/10/18 11:33 10/11/18 09:48 Subjective: PATIENT REPORTS THAT HE IS NOT SLEEPING WELL. OTHERWISE HE HAS NO COMPLAINTS. Objective: Vital Signs Temp Pulse Resp BP Pulse Ox 36.6 C 75 16 125/62 H 92 10/11/18 08:00 10/11/18 08:00 10/11/18 08:00 10/11/18 08:00 10/11/18 08:00 Laboratory Results 10/09/18 06:45 10/10/18 10/11/18 10/12/18 05:59 05:59 05:59 Intake Total 1065 1280 Balance 1065 1280 Physical Exam - Physical Exam General Appearance: WD/WN, alert Respiratory: lungs clear, normal breath sounds Cardiac/Chest: regular rate, rhythm Abdomen: non-tender, soft, other (NO SUPRAPUBIC TENDERNESS) Neuro/Psych: alert, normal mood/affect, motor weakness (RIGHT UPPER EXTREMITY WEAKNESS GREATER THAN RIGHT LOWER EXTREMITY WEAKNESS.) ICD10 Worksheet Patient Problems: Problems Problem Status Onset CVA (cerebrovascular accident due to intracerebral hemorrhage) Acute
[2018-10-11] MEDS: FLUTICASONE NASAL 120 SPRAYS/16 GM MDI EACHNARE SCH (11:10)
[2018-10-11] MEDS: ATORVASTATIN CALCIUM 40 MG TAB PO SCH (20:07)
[2018-10-11] MEDS: MELATONIN 3 MG TAB PO SCH (20:07)
[2018-10-11] MEDS: MIRTAZAPINE 15 MG TAB PO SCH (20:08)
[2018-10-11] MEDS: amLODIPine BESYLATE 5 MG TAB PO SCH (20:09)
[2018-10-11] MEDS: CALCIUM CARBONATE 500 MG CHEWABLE TAB PO PRN (20:09)
[2018-10-12] MEDS: OMEGA-3 FATTY ACIDS 1,000 MG CAP PO SCH (08:25)
[2018-10-12] MEDS: FAMOTIDINE 20 MG TAB PO SCH (08:26)
[2018-10-12] MEDS: LISINOPRIL 40 MG TAB PO SCH (08:26)
[2018-10-12] MEDS: POTASSIUM CL 10 MEQ TAB PO SCH (08:26)
[2018-10-12] MEDS: HYDROCHLOROTHIAZIDE 25 MG TAB PO SCH (08:27)
[2018-10-12] MEDS: FLUTICASONE NASAL 120 SPRAYS/16 GM MDI EACHNARE SCH (08:27)
--- NOTE | 2018-10-12 09:36 | SOAPPROG ---
SOAP Progress Note Assessment/Plan: Assessment: Hemorrhagic cerebrovascular accident with INITIAL flaccid paralysis of the right wrist and hand and weakness of the right upper extremity as well as gait impairment. HE IS MAKING IMPROVEMENTS IN BOTH RIGHT UPPER AND RIGHT LOWER EXTREMITY MOTOR RETURN. AND CURRENTLY RIGHT UPPER EXTREMITY WEAKNESS IS MORE PRONOUNCED THAN RIGHT LOWER EXTREMITY, PARTICULARLY INVOLVING WRIST AND FINGER EXTENSORS. HE WILL CONTINUE TO PERFORM REPETITIVE WRIST AND FINGER EXTENSION WHILE SUPPORTING FOREARM ON TABLE OR LAP TRAY. * Initial functional independence measure is 87 on 10/09/2017. He is independent with bed mobility. He ambulated greater than 300 ft with standby assist and a trach pole. Upper body dressing required supervision and lower body required minimal assist. Grooming hygiene were done standing with standby assist. Toileting and toilet transfer required standby assist. * Continue PT and OT to optimize mobility and activities of daily living. Cognitive impairment. Scored 18/30 on the [employer] cognitive Assessment Test. Has decreased word retrieval, naming, new learning and memory, executive function. * Continue ICING MAKER. Hope for improvement if his sleep improves. Hypertension. BLOOD PRESSURE ON 10/12 123/81. Continue amlodipine 5 mg daily, lisinopril 40 mg daily, and hydrochlorothiazide 25 mg daily. PATIENT SEEMS TO HAVE RESPONDED TO CHANGING THE AMLODIPINE TO HS DOSING. * He reports he was on potassium 10 mEq 4 times a day previously and wonders if he needs it now. BMP 10/09/2018 with dehydration and a low-normal potassium. Will initiate potassium 10 mEq p. O. Q.day. Encouraged hydration. Dyslipidemia. Atorvastatin has been increased from 20 mg to 40 mg and this will be continued. Anxiety and insomnia. He may well sleep better now that he is out of the hospital and on the rehabilitation unit. Will evaluate his sleep and his alertness during the day and consider elimination or titration of either mirtazapine or trazodone. * BED ALARMS HAVE BEEN DISCONTINUED. * BEGIN MELATONIN 3 MG AT NIGHT. DISCUSSED WITH PHARMACY TO ASCERTAIN THAT THERE ARE NO ADVERSE REACTIONS WITH HIS OTHER MEDICATIONS. Not using trazodone so will discontinue 10/09/2018. RESTLESS LEG SYNDROME-PATIENT AGAIN EXPRESSES THAT HE DOES NOT WANT MEDICATIONS FOR RESTLESS LEG SYNDROME. Rash on the right foot of unclear etiology. Continue the terbinafine at present. He reports that the itch on the rash has remitted with the terbinafine treatment which was prescribed by his outpatient physician. Gastroesophageal reflux disorder. Continue H2 navneet and continue calcium carbonate. Chronic kidney disease, stage 3. Stable on BMP 10/09/2018. Chronic hypoxemic respiratory failure of unclear etiology. He did not appear to have diastolic or systolic dysfunction other than the right ventricle with a slightly reduced ejection fraction on echocardiogram during his hospitalization. 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 He will be monitored and will receive oxygen as needed. Prediabetes with a hemoglobin A1c of 5.8. There will be a consult with the dietitian. Dysphagia. Advanced to regular texture diet and thin liquids. Prophylaxis. He does not have a paralyzed lower extremity and he is ambulatory. He has a recent brain hemorrhage, so on balance, the risk of bleed probably exceeds the risk of DVT. He will be mobilized as much as possible. Aspirin has been discontinued which he was taking prior to his bleed. He will have SCDs at night. DISPOSITION: Given his newly diagnosed cognitive impairment, they might be best served by moving to an assisted living facility. Case Management will discuss further. Discharge date set for 10/15/2018. Followup. There are no specific specialists followups mentioned in the discharge summary. He will follow up with his primary care provider. Plan: 10/10/18 11:33 10/11/18 09:48 10/12/18 09:33 Subjective: HE DOES NOT HAVE ANY COMPLAINTS THIS MORNING. HE INDICATES THAT HE WOULD LIKE TO BE DISCHARGED ON 10/14 INSTEAD OF 09/23. HE REPORTS HIS THERAPY SESSIONS ARE GOING WELL. HE SLEPT BETTER LAST NIGHT AFTER HAVING HIS 1ST DOSE OF MELATONIN. HE VERBALIZES THAT HE DOES NOT WANT MEDICATIONS FOR RESTLESS LEG SYNDROME. Objective: Vital Signs Temp Pulse Resp BP Pulse Ox 36.3 C 79 16 123/81 H 94 10/12/18 08:00 10/12/18 08:00 10/12/18 08:00 10/12/18 08:00 10/12/18 08:00 Laboratory Results 10/09/18 06:45 10/11/18 10/12/18 10/13/18 05:59 05:59 05:59 Intake Total 1280 788 960 Balance 1280 788 960 Physical Exam - Physical Exam General Appearance: WD/WN, alert, no apparent distress Respiratory: lungs clear, normal breath sounds Abdomen: normal bowel sounds, non-tender, soft Skin: normal color, warm/dry Extremities: No swelling, No Wendy's sign Neuro/Psych: alert, normal mood/affect, oriented x 3, motor weakness (HE HAS AT LEAST 4/5 STRENGTH OF THE ANTERIOR AND MIDDLE DELTOID AND IS ABLE TO RAISE RIGHT ARM ABOVE SHOULDER LEVEL WITHOUT MUCH DIFFICULTY. RIGHT WRIST EXTENSOR STRENGTH 3-/5 RIGHT FINGER EXTENSORS 2+ 3-/5) ICD10 Worksheet Patient Problems: Problems Problem Status Onset CVA (cerebrovascular accident due to intracerebral hemorrhage) Acute
[2018-10-12] MEDS: MIRTAZAPINE 15 MG TAB PO SCH (19:54)
[2018-10-12] MEDS: amLODIPine BESYLATE 5 MG TAB PO SCH (19:54)
[2018-10-12] MEDS: MELATONIN 3 MG TAB PO SCH (19:54)
[2018-10-12] MEDS: ATORVASTATIN CALCIUM 40 MG TAB PO SCH (19:54)
[2018-10-13] MEDS: OMEGA-3 FATTY ACIDS 1,000 MG CAP PO SCH (07:16)
[2018-10-13] MEDS: HYDROCHLOROTHIAZIDE 25 MG TAB PO SCH (07:16)
[2018-10-13] MEDS: POTASSIUM CL 10 MEQ TAB PO SCH (07:17)
[2018-10-13] MEDS: LISINOPRIL 40 MG TAB PO SCH (07:17)
[2018-10-13] MEDS: FAMOTIDINE 20 MG TAB PO SCH (07:17)
[2018-10-13] MEDS: FLUTICASONE NASAL 120 SPRAYS/16 GM MDI EACHNARE SCH (12:49)
--- NOTE | 2018-10-13 14:59 | SOAPPROG ---
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 Looking forward to discharging home and although he would prefer to leave tomorrow, team feels that the safe discharge is on given his mobility and safety level. A total of 25 min was spent on the floor in the care of the patient, the majority of which was spent in counseling and coordination of care regarding discharge planning and rehabilitation progress. Left lentiform nucleus hemorrhagic stroke with right-sided hemiparesis: * Continue PT, OT, speech for impairments in mobility, self-care, cognition. * Continue speech therapy for dysphagia related to stroke * Secondary prevention of stroke including treatment of dyslipidemia with atorvastatin, controlling hypertension with amlodipine, lisinopril, hydrochlorothiazide. Monitor * Aspirin held * Pre diabetes with hemoglobin A1c of 5.8 with consult the dietitian * Patient will be discharging home with family assistance Anxiety and insomnia: Trazodone tried and stopped as it was not felt to be effective * Melatonin 3 mg p.o. At bedtime History of restless leg syndrome: Previously tried ropinirole during this hospitalization, felt was ineffective * Discontinued ropinirole 10/13 after he had not been taking it for 2 days prior Rash of the right foot: Unclear etiology, thought to be related to fungal infection * Continued terbinafine prescribed by PCP GERD: * Continue H2 navneet and calcium carbonate Chronic kidney disease, stage III: BMP stable on 10/09/2018 * Monitor, clinically monitor fluid status Chronic hypoxemic respiratory failure of unclear etiology: * Monitor, supplemental oxygen as needed Prophylaxis: Chemoprophylaxis was deferred given recent intracranial hemorrhage as well as relatively high mobility level. Follow-up with PCP, he would need driving evaluation before returning to driving. 10/13/18 14:51 10/13/18 14:59 10/13/18 15:00 Subjective: Chief complaint: Discharge planning No acute events overnight. Patient denies any new shortness of breath or chest pain, no new numbness, tingling, or weakness. He is looking forward to going home, would like to discharge home tomorrow if possible but recognizes that safety may limit him from going home at that time. Otherwise he feels like therapy is going well, he feels he is making progress. No barriers as participation. He reinforce that he is not interested in continuing ropinirole for his restless legs syndrome as he felt it was not effective. Objective: Vital Signs Temp Pulse Resp BP Pulse Ox 36.6 C 65 16 110/73 96 10/13/18 06:43 10/13/18 06:43 10/13/18 06:43 10/13/18 07:17 10/13/18 06:43 Laboratory Results 10/09/18 06:45 10/12/18 10/13/18 10/14/18 05:59 05:59 05:59 Intake Total 788 1860 Balance 788 1860 Physical Exam - Physical Exam General Appearance: WD/WN, alert, no apparent distress EENT: No scleral icterus (R), No scleral icterus (L) Respiratory: No respiratory distress, No accessory muscle use Cardiac/Chest: normal peripheral pulses, regular rate, rhythm, No edema Skin: normal color, warm/dry, No cyanosis, No diaphoresis Extremities: No pedal edema, No swelling Neuro/Psych: alert, normal mood/affect, motor weakness (Right weakness) ICD10 Worksheet Patient Problems: Problems Problem Status Onset CVA (cerebrovascular accident due to intracerebral hemorrhage) Acute
[2018-10-13] MEDS: ATORVASTATIN CALCIUM 40 MG TAB PO SCH (21:05)
[2018-10-13] MEDS: MELATONIN 3 MG TAB PO SCH (21:06)
[2018-10-13] MEDS: MIRTAZAPINE 15 MG TAB PO SCH (21:06)
[2018-10-13] MEDS: amLODIPine BESYLATE 5 MG TAB PO SCH (21:06)
[2018-10-14] MEDS: HYDROCHLOROTHIAZIDE 25 MG TAB PO SCH (09:01)
[2018-10-14] MEDS: FLUTICASONE NASAL 120 SPRAYS/16 GM MDI EACHNARE SCH (09:01)
[2018-10-14] MEDS: OMEGA-3 FATTY ACIDS 1,000 MG CAP PO SCH (09:01)
[2018-10-14] MEDS: FAMOTIDINE 20 MG TAB PO SCH (09:01)
[2018-10-14] MEDS: POTASSIUM CL 10 MEQ TAB PO SCH (09:01)
[2018-10-14] MEDS: LISINOPRIL 40 MG TAB PO SCH (09:01)
--- NOTE | 2018-10-14 12:33 | SOAPPROG ---
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 * Initial functional independence measure is 87 on 10/09/2017. He is independent with bed mobility. He ambulated greater than 300 ft with standby assist and a trach pole. Upper body dressing required supervision and lower body required minimal assist. Grooming hygiene were done standing with standby assist. Toileting and toilet transfer required standby assist. * Has progressed to independent in his room. Mobility is independent or modified independent with a trekking pole. Has ambulated greater than 400 ft. Tim balance inventory 51/56 on 10/13/2018. Independent or modified independent for ADLs except standby assist for bath transfer. Still not incorporating right hand fully into ADLs. * Continue PT and OT to optimize mobility and activities of daily living. Cognitive impairment. Scored 18/30 on the Emigdio cognitive Assessment Test. Has decreased word retrieval, naming, new learning and memory, executive function. * Continue [employer]. Hope for improvement if his sleep improves. Hypertension. Continue amlodipine 5 mg daily, lisinopril 40 mg daily, and hydrochlorothiazide 25 mg daily. His blood pressure will be monitored. If he continues to have elevated blood pressures at night or first thing in the morning, consider changing the amlodipine to h.s. dosing. * He reports he was on potassium 10 mEq 4 times a day previously and wonders if he needs it now. BMP 10/09/2018 with dehydration and a low-normal potassium. Will initiate potassium 10 mEq p. O. Q.day. Encouraged hydration. Dyslipidemia. Atorvastatin has been increased from 20 mg to 40 mg and this will be continued. Anxiety and insomnia. He may well sleep better now that he is out of the hospital and on the rehabilitation unit. Will evaluate his sleep and his alertness during the day and consider elimination or titration of either mirtazapine or trazodone. * Will discuss whether he needs alarms with nursing. * Trial of ropinirole 0.25 mg at regarding restless leg syndrome, beginning Increase dose on 10/09/2018 to 0.5 mg. he did feel ropinirole was helpful so it has been discontinued. * Not using trazodone so will discontinue 10/09/2018. Rash on the right foot of unclear etiology. Continue the terbinafine at present. He reports that the itch on the rash has remitted with the terbinafine treatment which was prescribed by his outpatient physician. Gastroesophageal reflux disorder. Continue H2 navneet and continue calcium carbonate. Chronic kidney disease, stage 3. Stable on BMP 10/09/2018. Chronic hypoxemic respiratory failure of unclear etiology. He did not appear to have diastolic or systolic dysfunction other than the right ventricle with a slightly reduced ejection fraction on echocardiogram during his hospitalization. 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 He will be monitored and will receive oxygen as needed. Prediabetes with a hemoglobin A1c of 5.8. There will be a consult with the dietitian. Dysphagia. Advanced to regular texture diet and thin liquids. Prophylaxis. He does not have a paralyzed lower extremity and he is ambulatory. He has a recent brain hemorrhage, so on balance, the risk of bleed probably exceeds the risk of DVT. He will be mobilized as much as possible. Aspirin has been discontinued which he was taking prior to his bleed. He will have SCDs at night. DISPOSITION: Lives with his who has mild dementia though she is able to complete her physical cares. He reports he assists her with medication management. There are 2 steps to enter. Given his newly diagnosed cognitive impairment, they might be best served by moving to an assisted living facility. Case Management will discuss further. Discharge date set for 10/15/2018. Followup. There are no specific specialists followups mentioned in the discharge summary. He will follow up with his primary care provider. 10/14/18 12:27 Subjective: No complaints. Ready to go home tomorrow. Has improved use of his right upper extremity. Objective: Vital Signs Temp Pulse Resp BP Pulse Ox 36.6 C 86 18 129/77 H 94 10/13/18 19:53 10/14/18 08:00 10/14/18 08:00 10/14/18 08:00 10/14/18 08:00 Laboratory Results 10/09/18 06:45 10/13/18 10/14/18 10/15/18 05:59 05:59 05:59 Intake Total 1860 1500 480 Balance 1860 1500 480 Physical Exam - Physical Exam General Appearance: WD/WN, alert, no apparent distress Respiratory: normal breath sounds, No crackles, No rhonchi, No wheezing Cardiac/Chest: regular rate, rhythm, No edema, No diastolic murmur, No systolic murmur Skin: normal color, warm/dry Neuro/Psych: alert, normal mood/affect, oriented x 3 ICD10 Worksheet Patient Problems: Problems Problem Status Onset CVA (cerebrovascular accident due to intracerebral hemorrhage) Acute
--- NOTE | 2018-10-14 13:15 | PDOREHIP ---
Admission [facility] - Admission - 3 Day Assessment Period Admission Date/Day 1: 10/06/18 Day 2: 10/07/18 Day 3: 10/08/18 - Active Diagnoses Comorbidities and Co-existing Conditions at Admission: 66895. None of the Above Discharge [facility] - Discharge - 3 Day Assessment Period 2 Days Prior to Anticipated Discharge Date: 10/13/18 1 Day Prior to Anticipated Discharge Date: 10/14/18 Anticipated Discharge Date: 10/15/18 - Discharge Skin Conditions Unhealed Pressure Ulcer (1 or more/Stage 1 or >)-Discharge: 0. No # Stage 1 Pressure Ulcers-Discharge: 0 # Stage 2 Pressure Ulcers-Discharge: 0 # of These Stage 2 Pressure Ulcers Present on Admission: 0 # Stage 3 Pressure Ulcers-Discharge: 0 # of These Stage 3 Pressure Ulcers Present on Admission: 0 # Stage 4 Pressure Ulcers-Discharge: 0 # of These Stage 4 Pressure Ulcers Present on Admission: 0 # Unstageable Pressure Ulcers (Non-remove Dress)-Discharge: 0 # These Unstageable Pressure Ulcers (NRD)-Present on Admit: 0 # Unstageable Pressure Ulcers (Slough/Eschar)-Discharge: 0 # These Unstageable Pressure Ulcers(Slough) Present on Admit: 0 # Unstageable Pressure Ulcers (Deep Tissue Injury)-Discharge: 0 # These Unstageable Pressure Ulcers (DTI) Present on Admit: 0
[2018-10-14] MEDS: amLODIPine BESYLATE 5 MG TAB PO SCH (21:15)
[2018-10-14] MEDS: MIRTAZAPINE 15 MG TAB PO SCH (21:15)
[2018-10-14] MEDS: ATORVASTATIN CALCIUM 40 MG TAB PO SCH (21:15)
[2018-10-14] MEDS: MELATONIN 3 MG TAB PO SCH (21:15)
[2018-10-15 08:05] VITALS: BP 129/80
[2018-10-15] MEDS: FAMOTIDINE 20 MG TAB PO SCH (08:34)
[2018-10-15] MEDS: POTASSIUM CL 10 MEQ TAB PO SCH (08:34)
[2018-10-15] MEDS: HYDROCHLOROTHIAZIDE 25 MG TAB PO SCH (08:35)
[2018-10-15] MEDS: OMEGA-3 FATTY ACIDS 1,000 MG CAP PO SCH (08:35)
[2018-10-15] MEDS: FLUTICASONE NASAL 120 SPRAYS/16 GM MDI EACHNARE SCH (08:35)
[2018-10-15] MEDS: LISINOPRIL 40 MG TAB PO SCH (08:35)
--- NOTE | 2018-10-15 15:47 | GDS ---
ADMISSION DIAGNOSIS: Hemorrhagic cerebrovascular accident of the left lentiform nucleus with right upper and lower extremity weakness. DISCHARGE DIAGNOSIS: Hemorrhagic cerebrovascular accident of the left lentiform nucleus with right upper and lower extremity weakness. OTHER DISCHARGE DIAGNOSES: 1. Cognitive impairment. 2. Hypertension. 3. Anxiety and insomnia. 4. Prediabetes. COMPLICATIONS: There were none. CONSULTATIONS: There were none. PROCEDURES: There were none. HISTORY AND HOSPITAL COURSE: This patient was admitted from [facility]. He had presented there on 10/01/2018, with right-sided weakness and dysarthria. He had a head CT, which showed an intraparenchymal hemorrhage of the left lentiform nucleus. CT angiogram showed no significant large vessel occlusion. Transthoracic echo with bubble study showed no intracardiac shunt. He had [id number] concentric LVH and mildly reduced right ventricular systolic function, but otherwise, echo was normal. There was a very small amount of plaque noted on a carotid ultrasound and he had mild-to- moderate intracranial and extracranial atherosclerosis on CT angiogram. Blood pressure was high and he initially needed a nicardipine IV infusion to maintain blood pressure less than 140 systolic. He did not need any surgical intervention. Blood pressure was subsequently adequately controlled on his home medications and he was appropriate for inpatient rehabilitation. He did well in therapies. His initial functional independence measure was 87 on 10/09/2017, consistent with assisted living level of function. At that time , he was able to ambulate more than 300 feet with standby assist and a trekking pole. He soon progressed to independent in his room and ambulating over 400 feet. His Tim balance inventory was 51/56 on 10/13/2017, indicating low fall risk. He was independent or modified independent for activities of daily living , except he required standby assist for bath transfer, and he was still not incorporating his right hand fully into ADLs. Regarding cognition, Emigdio Cognitive Assessment was administered, and he scored 18/30, which is in the demented range. He had decreased word retrieval, naming, new learning memory, and executive function. He continued working with speech and language pathology. Insomnia was addressed in hopes that with better sleep, his cognition would improve. Regarding hypertension, he was continued on his medications of amlodipine 5 mg daily, lisinopril 5 mg daily, and hydrochlorothiazide 25 mg daily. He reported that he had been previously on potassium 10 mEq 4 times a day. He had a basic metabolic profile drawn on 10/09/2018, which showed potassium of the low end of normal. He was initiated on potassium 10 mg mEq daily. Regarding anxiety and insomnia, he arrived with prescriptions for trazodone and mirtazapine. He did not find the trazodone useful, but he continued the mirtazapine and his sleep improved. He has a history of restless legs, present during the day, as well as at night. He had a trial of ropinirole initially at 0.25 mg and titrated to 0.5 mg q.h.s. He did not notice any improvement on this medications, so it was not continued. Regarding prediabetes, this was diagnosed with a hemoglobin A1c of 5.8 in the hospital. He had consultation with dietitian. CONDITION UPON DISCHARGE: Good. ACTIVITY: Ad quincy, though he is not to return to driving until he completes a pre-driving screen per occupational therapy, and he continues to have decreased awareness of his right upper extremity. DIET: Regular. ALLERGIES: There are no new drug allergies. His allergy list on admission was minocycline and penicillins. DISCHARGE DISPOSITION: He is returning home, where he lives with his who has mild dementia. He will have assistance with medication management and driving, plus additional help as needed. DISCHARGE MEDICATIONS: 1. Acetaminophen 650 mg p.o. q.6 hours p.r.n. 2. Amlodipine 5 mg p.o. daily. 3. Atorvastatin 40 mg p.o. q.h.s. 4. Calcium carbonate 1000 mg p.o. after meals and at h.s. as needed. 5. Famotidine 20 mg p.o. daily. 6. Fluticasone 2 sprays each naris daily. 7. Hydrochlorothiazide 25 mg p.o. daily. 8. Lisinopril 40 mg p.o. daily. 9. Melatonin 3 mg p.o. q.h.s. 10. Mirtazapine 15 mg p.o. q.h.s. 11. [place]-3 fatty acids 1000 mg daily. 12. Potassium chloride 10 mEq p.o. daily. 13. Terbinafine cream for athlete's feet p.r.n. ISSUES TO BE ADDRESSED AT FOLLOWUP: 1. Mobility and activities of daily living. He will continue home PT and OT. 2. Cognition. He will continue speech and language pathology at home and there will be a nurse visit to ensure medication management. 3. Hypertension has been well managed. Continue his current medications and follow up with primary care. 4. Anxiety and insomnia. It can be assessed whether he continues to sleep well and his level of anxiety once he is home. Continue mirtazapine for now. Might consider discontinuation per his primary care provider. 5. Prediabetes. Encouraged increased activity and dietary compliance. /[id number]/MODL and [id number]/MODL [facility]
--- NOTE | 2018-10-15 19:28 | GDS ---
ADDENDUM: MEDICATIONS: 1. Hydrochlorothiazide 25 mg p.o. daily. 2. Lisinopril 40 mg p.o. daily. 3. Melatonin 3 mg p.o. q.h.s. 4. Mirtazapine 15 mg p.o. q.h.s. 5. [place]-3 fatty acids 1000 mg daily. 6. Potassium chloride 10 mEq p.o. daily. 7. Terbinafine cream for athlete's feet p.r.n. ISSUES TO BE ADDRESSED AT FOLLOWUP: 1. Mobility and activities of daily living. He will continue home PT and OT. 2. Cognition. He will continue speech and language pathology at home and there will be a nurse visit to ensure medication management. 3. Hypertension has been well managed. Continue his current medications and follow up with primary c are. 4. Anxiety and insomnia. It can be assessed whether he continues to sleep well and his level of anxi ety once he is home. Continue perhaps mirtazapine for now. Might consider discontinuation working wit h his primary care provider. 5. Prediabetes. Encouraged increased activity and dietary compliance. c/p ITS #[id number] /[id number]/MODL
== END 2018-10-15 13:14 | disposition home health service (06) | DRG 57 ==
LOC: BREH 14:25
PROVIDERS: ADMIT Internal Medicine Hospice and Palliative Medicine; ATTEND Internal Medicine Hospice and Palliative Medicine
DX: I69.151 Hemiplegia and hemiparesis following nontraumatic intracerebral hemorrhage affecting right dominant side (principal); I69.120 Aphasia following nontraumatic intracerebral hemorrhage; I69.191 Dysphagia following nontraumatic intracerebral hemorrhage; E78.5 Hyperlipidemia, unspecified; R21 Rash and other nonspecific skin eruption; K21.9 Gastro-esophageal reflux disease without esophagitis; I12.9 Hypertensive chronic kidney disease with stage 1 through stage 4 chronic kidney disease, or unspecified chronic kidney disease; N18.3 Chronic kidney disease, stage 3 (moderate); J96.11 Chronic respiratory failure with hypoxia; R73.03 Prediabetes; F41.8 Other specified anxiety disorders; G47.00 Insomnia, unspecified; G25.81 Restless legs syndrome
CPT/HCPCS: 92507-GN; 92523-GN; 92610-GN; 97110-GO; 97110-GP; 97112-GO; 97112-GP; 97116-GP; 97162-GP; 97166-GO; 97530-GO; 97530-GP; 97535-GO